=== PATIENT | male | born 1950 | race Caucasian/White ===

== ENCOUNTER 2017-01-17 08:48 | Emergency (ER) | payer BC ==
[2017-01-17] MEDS ORDERED: Sodium Chloride 0.9% 10 ML Syringe FLUSH PRN (09:17)
[2017-01-17] MEDS ORDERED: Sodium Chloride 0.9% 1,000 ML IV ONE (09:17)
--- NOTE | 2017-01-17 09:24 | EDM.PDOC ---
ED HPI GENERAL MEDICAL PROBLEM - General Chief Complaint: General Stated Complaint: FELLING ILL, MULTI SYMPTOMS Time Seen by Provider: 01/17/17 08:58 Source of Information: Reports: Patient History Limitations: Reports: No limitations - History of Present Illness INITIAL COMMENTS - FREE TEXT/NARRATIVE: HISTORY AND PHYSICAL: History of present illness: [66 year old male with a history of elevated blood pressure and noncompliance over the last 2 weeks. Patient had been on antihypertensive for 15 years but decided 2 weeks ago his blood pressure had improved so much that it was time to stop so he text of his to that effect. Patient now came to the emergency apartment for evaluation of fatigue. He states he is sleeping well and is not have clinical history to suggest sleep apnea. He's never had abnormal thyroid studies. Patient's had no tick exposure or recent illness he is aware of. 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 Denies chest pain or shortness of breath. Patient has no neurologic complaints denies dizziness or near syncope. No chest pain or shortness of breath. Patient denies depression or any new stressors in his life Review of systems: As per history of present illness and below otherwise all systems reviewed and negative. Past medical history: As per history of present illness and as reviewed below otherwise noncontributory. Surgical history: As per history of present illness and as reviewed below otherwise noncontributory. Social history: No reported history of drug or alcohol abuse. Family history: As per history of present illness and as reviewed below otherwise noncontributory. Physical exam: Alert well-appearing exam unremarkable HEENT: Atraumatic, normocephalic, pupils reactive, negative for conjunctival pallor or scleral icterus, mucous membranes moist, throat clear, neck supple, nontender, trachea midline. Lungs: Clear to auscultation, breath sounds equal bilaterally, chest nontender. Heart: S1S2, regular, negative for clicks, rubs, or JVD. Abdomen: Soft, nondistended, nontender. Negative for masses or hepatosplenomegaly. Negative for costovertebral tenderness. Pelvis: Stable nontender. Genitourinary: Deferred. Rectal: Deferred. Extremities: Atraumatic, negative for cords or calf pain. Neurovascular unremarkable. Neuro: Awake, alert, oriented. Cranial nerves II through XII unremarkable. Cerebellum unremarkable. Motor and sensory unremarkable throughout. Exam nonfocal. Diagnostics: [Chest x-ray unremarkable. EKG normal sinus rhythm no tachycardia no STEMI interpreted by me] Therapeutics: [] Impression: [] Plan: [Signs and symptoms consistent with fatigue. Patient's blood pressure uncontrolled however no evidence of endorgan injury and patient is asymptomatic in the emergency department except for a mild subjective fatigue. His exam and workup are both unremarkable. No further workup or treatment indicated at this time. Patient aware critical importance of close followup with his Dr. and reestablishment of his antihypertensive regimen. Discussed with patient at length importance of compliance with good blood pressure control and ramifications of long-term changes predisposing him to adverse developments in his health including but not limited to stroke visual changes cardiac injury cardiac dysfunction kidney failure peripheral vascular disease. Definitive disposition and diagnosis as appropriate pending reevaluation and review of above. - Related Data Allergies Allergy/AdvReac Type Severity Reaction Status Date / Time peanut Allergy Unknown Verified 01/17/17 09:06 Sulfa (Sulfonamide Allergy Unknown Verified 01/17/17 09:06 Antibiotics) Home Meds: Home Meds Ageless Male Supplement 01/17/17 [History] Past Medical History HEENT History: Reports: Impaired vision Cardiovascular History: Reports: Hypertension - Past Surgical History GI Surgical History: Reports: Appendectomy Social & Family History - Family History Family Medical History: Unobtainable - Tobacco Use Smoking Status *Q: Never Smoker - Caffeine Use Caffeine Use: Reports: Energy drinks Caffeine Use Comment: Pt reports 1-2 daily - Recreational Drug Use Recreational Drug Use: No ED ROS GENERAL - Review of Systems Review Of Systems: See Below (Per history of present illness) ED EXAM, GENERAL - Physical Exam Exam: See Below (Per history of present illness) Course - Vital Signs Last Recorded V/S: Last Vital Signs Temp 36.7 C 01/17/17 09:01 Pulse 62 01/17/17 09:01 Resp 18 01/17/17 09:01 BP 166/106 H 01/17/17 09:01 Pulse Ox 97 01/17/17 09:01 - Orders/Labs/Meds Orders: Active Orders 24 hr Category Date Time Status EKG Documentation Completion [RC] STAT Care 01/17/17 09:17 Active Peripheral IV Care [RC] . DIRECTED Care 01/17/17 09:17 Active Sodium Chloride 0.9% [Saline Flush] Med 01/17/17 09:17 Active 10 ml FLUSH ASDIRECTED PRN Peripheral IV Insertion Adult [OM.PC] Stat Oth 01/17/17 09:17 Ordered Medication Orders Sodium Chloride (Saline Flush) 10 ml FLUSH ASDIRECTED PRN PRN Reason: Keep Vein Open Labs: Laboratory Tests 01/17/17 01/17/17 01/17/17 Range/Units 09:26 09:26 09:26 WBC 5.46 (4.0-11.0) K/uL RBC 5.09 (4.50-5.90) M/uL Hgb 15.3 (13.0-17.0) g/dL Hct 44.7 (38.0-50.0) % MCV 87.8 (80.0-98.0) fL MCH 30.1 (27.0-32.0) pg MCHC 34.2 (31.0-37.0) g/dL RDW Std Deviation 44.6 (28.0-62.0) fl RDW Coeff of Char 14 (11.0-15.0) % Plt Count 204 (150-400) K/uL MPV 12.00 (7.40-12.00) fL Neut % (Auto) 57.9 (48.0-80.0) % Lymph % (Auto) 27.8 (16.0-40.0) % [place] % (Auto) 11.5 (0.0-15.0) % Eos % (Auto) 1.3 (0.0-7.0) % Baso % (Auto) 1.5 (0.0-1.5) % Neut # (Auto) 3.2 (1.4-5.7) K/uL Lymph # (Auto) 1.5 (0.6-2.4) K/uL [place] # (Auto) 0.6 (0.0-0.8) K/uL Eos # (Auto) 0.1 (0.0-0.7) K/uL Baso # (Auto) 0.1 (0.0-0.1) K/uL Nucleated RBC % 0.0 /100WBC Nucleated RBCs # 0 K/uL Sodium 138 (136-146) mmol/L Potassium 3.7 (3.5-5.1) mmol/L Chloride 106 (98-110) mmol/L Carbon Dioxide 23 (21-31) mmol/L BUN 13 (6.0-23.0) mg/dL Creatinine 0.9 (0.6-1.5) mg/dL Est Cr Clr Drug Dosing 83.36 mL/min Estimated GFR (MDRD) > 60.0 ml/min Glucose 110 (60-110) mg/dL Calcium 8.9 (8.8-10.8) mg/dL Total Bilirubin 0.4 (0.1-1.5) mg/dL AST 17 (5-40) IU/L ALT 20 (8-54) IU/L Alkaline Phosphatase 68 (40-150) Troponin I < 0.10 (0.0-0.29) NG/ML Total Protein 6.6 (6.0-8.0) g/dL Albumin 3.9 (3.4-4.8) g/dL Globulin 2.7 (2.0-3.5) g/dL Albumin/Globulin Ratio 1.4 (1.3-2.8) Free T4 0.89 (0.7-1.48) ng/dL TSH 3rd Generation 1.68 (0.47-5.0) uIU/mL Urine Color Urine Appearance Urine pH (5.0-8.0) Ur Specific [place] (1.001-1.035) Urine Protein (NEGATIVE) mg/dL Urine Glucose (UA) (NEGATIVE) mg/dL Urine Ketones (NEGATIVE) mg/dL Urine Occult Blood (NEGATIVE) Urine Nitrite (NEGATIVE) Urine Bilirubin (NEGATIVE) Urine Urobilinogen (<2.0) EU/dL Ur Leukocyte Esterase (NEGATIVE) Urine RBC (0-2/HPF) Urine WBC (0-5/HPF) Ur Epithelial Cells (NONE-FEW) Amorphous Sediment (NEGATIVE) Urine Bacteria (NEGATIVE) 01/17/17 Range/Units 10:15 WBC (4.0-11.0) K/uL RBC (4.50-5.90) M/uL Hgb (13.0-17.0) g/dL Hct (38.0-50.0) % MCV (80.0-98.0) fL MCH (27.0-32.0) pg MCHC (31.0-37.0) g/dL RDW Std Deviation (28.0-62.0) fl RDW Coeff of Char (11.0-15.0) % Plt Count (150-400) K/uL MPV (7.40-12.00) fL Neut % (Auto) (48.0-80.0) % Lymph % (Auto) (16.0-40.0) % [place] % (Auto) (0.0-15.0) % Eos % (Auto) (0.0-7.0) % Baso % (Auto) (0.0-1.5) % Neut # (Auto) (1.4-5.7) K/uL Lymph # (Auto) (0.6-2.4) K/uL [place] # (Auto) (0.0-0.8) K/uL Eos # (Auto) (0.0-0.7) K/uL Baso # (Auto) (0.0-0.1) K/uL Nucleated RBC % /100WBC Nucleated RBCs # K/uL Sodium (136-146) mmol/L Potassium (3.5-5.1) mmol/L Chloride (98-110) mmol/L Carbon Dioxide (21-31) mmol/L BUN (6.0-23.0) mg/dL Creatinine (0.6-1.5) mg/dL Est Cr Clr Drug Dosing mL/min Estimated GFR (MDRD) ml/min Glucose (60-110) mg/dL Calcium (8.8-10.8) mg/dL Total Bilirubin (0.1-1.5) mg/dL AST (5-40) IU/L ALT (8-54) IU/L Alkaline Phosphatase (40-150) Troponin I (0.0-0.29) NG/ML Total Protein (6.0-8.0) g/dL Albumin (3.4-4.8) g/dL Globulin (2.0-3.5) g/dL Albumin/Globulin Ratio (1.3-2.8) Free T4 (0.7-1.48) ng/dL TSH 3rd Generation (0.47-5.0) uIU/mL Urine Color YELLOW Urine Appearance CLEAR Urine pH 6.5 (5.0-8.0) Ur Specific [place] <= 1.005 (1.001-1.035) Urine Protein NEGATIVE (NEGATIVE) mg/dL Urine Glucose (UA) NEGATIVE (NEGATIVE) mg/dL Urine Ketones NEGATIVE (NEGATIVE) mg/dL Urine Occult Blood NEGATIVE (NEGATIVE) Urine Nitrite NEGATIVE (NEGATIVE) Urine Bilirubin NEGATIVE (NEGATIVE) Urine Urobilinogen 0.2 (<2.0) EU/dL Ur Leukocyte Esterase NEGATIVE (NEGATIVE) Urine RBC NONE SEEN (0-2/HPF) Urine WBC 0-1 (0-5/HPF) Ur Epithelial Cells RARE (NONE-FEW) Amorphous Sediment RARE (NEGATIVE) Urine Bacteria RARE (NEGATIVE) Meds: Medications Generic Name Dose Route Start Last Admin Trade Name Freq PRN Reason Stop Dose Admin Sodium Chloride 10 ml 01/17/17 09:17 Saline Flush FLUSH ASDIRECTED PRN Keep Vein Open Discontinued Medications Generic Name Dose Route Start Last Admin Trade Name Freq PRN Reason Stop Dose Admin Sodium Chloride 1,000 mls @ 999 mls/hr 01/17/17 09:17 01/17/17 10:08 Normal Saline IV 01/17/17 10:17 999 mls/hr .Bolus ONE Administration Departure - Departure Time of Disposition: 12:00 Disposition: Home, Self-Care 01 Condition: good Clinical Impression: Fatigue, Uncontrolled hypertension, Noncompliance with medication regimen Referrals: PCP,None [Primary Care Provider] - Forms: ED Department Discharge Additional Instructions: Is not clear what is causing your fatigue other than the most likely possibility of working especially hard in the last few days as you mentioned. A full workup was unremarkable except for the fact that your blood pressure is not well controlled. The aware that your recent decision to stop your blood pressure medicine has resulted in your blood pressure being elevated beyond the appropriate cut off to optimize your long-term health. It is critically important that you discuss with your Dr. reinitiation of your antihypertensive treatment and comply with that as prescribed. Failure to do so will result in chronic changes such as retinal changes, arterial disease in the heart brain and kidneys which could result in heart attack stroke or kidney failure. The long-term sequelae of chronically uncontrolled hypertension commonly results in premature . All up with your Dr. in one to 2 days and return immediately for new severe or worsening symptoms. - My Orders Last 24 Hours: My Active Orders 01/17/17 09:17 EKG Documentation Completion [RC] STAT Peripheral IV Care [RC] . DIRECTED Sodium Chloride 0.9% [Saline Flush] 10 ml FLUSH ASDIRECTED PRN Peripheral IV Insertion Adult [OM.PC] Stat - Assessment/Plan Last 24 Hours: My Active Orders 01/17/17 09:17 EKG Documentation Completion [RC] STAT Peripheral IV Care [RC] . DIRECTED Sodium Chloride 0.9% [Saline Flush] 10 ml FLUSH ASDIRECTED PRN Peripheral IV Insertion Adult [OM.PC] Stat
[2017-01-17 09:59] LABS: CHLORIDE,CL 106 mmol/L (98-110); SODIUM,NA 138 mmol/L (136-146)
--- NOTE | 2017-01-17 11:00 | CR ---
EXAMINATION: Portable chest radiograph. HISTORY: Chest eval. FINDINGS: The trachea is midline. The cardiomediastinal silhouette is within normal limits. No pulmonary infil trates, effusions or pneumothorax. Osseous structures appear unremarkable. IMPRESSION: No acute cardiopulmonary process.
[2017-01-17 13:32] VITALS: BP 110/63
== END 2017-01-17 12:33 | disposition home or self-care (01) ==
LOC: MW.ED 08:48
DX: R53.83 Other fatigue (principal); I10 Essential (primary) hypertension; Z91.14 Patient's other noncompliance with medication regimen; Z91.010 Allergy to peanuts; Z88.2 Allergy status to sulfonamides; Z90.49 Acquired absence of other specified parts of digestive tract
CPT/HCPCS: 36415; 71010; 80053; 81001; 84439; 84443; 84484; 85025; 93005; J7040; 99284